=== PATIENT | female | born 1965 | race African-American/Black ===

== ENCOUNTER 2020-10-20 18:01 | Inpatient (IN) | payer OTHER ==
[2020-10-20 23:52] VITALS: BMI 23.1
[2020-10-21] MEDS ORDERED: MAG HYDROX/AL HYDROX/SIMETH 30 ML UNIT-DOSE CUP PO PRN (01:19)
[2020-10-21] MEDS ORDERED: IBUPROFEN 400 MG TABLET (FP) PO PRN (01:19)
[2020-10-21] MEDS ORDERED: guaiFENesin 200 MG/10 ML 10 ML UNIT-DOSE CUPS PO PRN (01:19)
[2020-10-21] MEDS ORDERED: NICOTINE POLACRILEX 2 MG GUM BC PRN (01:19)
[2020-10-21] MEDS ORDERED: MAGNESIUM HYDROX 2400MG/30ML ORAL SUSPENSION 30 ML CUP PO PRN (01:19)
[2020-10-21] MEDS ORDERED: ACETAMINOPHEN 325 MG TABLET (FP) PO PRN (01:19)
[2020-10-21] MEDS ORDERED: P-EPHED 60MG/TRIPROLIDI 2.5MG TABLET PO PRN (01:19)
[2020-10-21] MEDS ORDERED: LOPERAMIDE HCL 2 MG CAPSULE PO PRN (01:19)
[2020-10-21] MEDS ORDERED: MAGNESIUM CITRATE 300 ML BOTTLE PO PRN (01:19)
[2020-10-21] MEDS ORDERED: METHADONE HCL 10 MG TABLET PO ONE (08:44)
[2020-10-21] MEDS ORDERED: METHADONE 80 MG, METHADONE 30 MG, METHADONE 5 MG PO ONE (09:00)
[2020-10-21] MEDS ORDERED: METHADONE HCL 5 MG TABLET ONE (09:04)
[2020-10-21] MEDS ORDERED: METHADONE HCL 10 MG TABLET ONE (09:04)
[2020-10-21] MEDS ORDERED: METHADONE HCL 40 MG DISPERSABLE TABLET ONE (09:05)
[2020-10-21] MEDS: NICOTINE 14 MG/24 HOURS TOPICAL PATCH TD SCH (09:23)
[2020-10-21] MEDS: PRENATAL VITAMINS W/ FOLIC ACID TABLET (FP) PO SCH (09:23)
[2020-10-21 10:59] LABS: HEMATOCRIT 38.9 % (32.4-45.2); HEMOGLOBIN 12.9 GM/dL (10.7-15.3); MCH 27.8 pg (25.7-33.7); MCHC 33.1 g/dl (32.0-36.0); MEAN CELL VOLUME 83.9 fl (80-96); MEAN PLT VOLUME 9.4 fl (7.5-11.1); PLATELET COUNT 222 K/MM3 (134-434); RBC 4.64 M/mm3 (3.60-5.2); RDW 14.9 % (11.6-15.6)
[2020-10-21 11:07] LABS: CALCIUM 9.5 mg/dL (8.5-10.1)
[2020-10-21 11:08] LABS: ALBUMIN 3.4 g/dl (3.4-5.0); BLOOD UREA NITROGEN 14.9 mg/dL (7-18)
[2020-10-21 11:11] LABS: CREATININE 0.7 mg/dL (0.55-1.3)
[2020-10-21 11:13] LABS: BILIRUBIN,TOTAL 0.4 mg/dL (0.2-1); TOT PROT 7.1 g/dl (6.4-8.2)
[2020-10-21] MEDS ORDERED: ALBUTEROL SO4 HFA INHALER IH PRN (11:45)
[2020-10-21] MEDS: CHOLECALCIFEROL (VIT D3) 1,000 UNIT (25 MCG) TABLET PO SCH (12:22)
[2020-10-21] MEDS: HYDROCHLOROTHIAZIDE 25 MG TABLET (FP) PO SCH (12:22)
[2020-10-21] MEDS: NAPROXEN 500 MG TABLET PO PRN (12:22)
[2020-10-21 14:55] LABS: EPI CELLS 22 /uL (0-25.1); HYALINE CASTS 1 /uL (0-3.1); URINE APPEARANCE CLEAR; URINE BACTERIA 1412 /uL (0-1359); URINE BILIRUBIN NEGATIVE (NEGATIVE); URINE COLOR YELLOW; URINE GLUCOSE (UA) NEGATIVE (NEGATIVE); URINE KETONE NEGATIVE (NEGATIVE); URINE LEUK ESTERASE TRACE (NEGATIVE); URINE NITRITE NEGATIVE (NEGATIVE); URINE PROTEIN NEGATIVE (NEGATIVE); URINE RBC 3 /uL (0-23.9); URINE WBC 16 /uL (0-25.8)
[2020-10-21] MEDS: ATORVASTATIN CA 10 MG TABLET (FP) PO SCH (21:26)
[2020-10-21] MEDS: THIAMINE HCL 100 MG TABLET (FP) PO SCH (21:26)
[2020-10-21] MEDS: MELATONIN 5 MG TABLETS PO SCH (21:26)
[2020-10-22] MEDS ORDERED: METHADONE HCL 10 MG TABLET PO SCH (06:00)
[2020-10-22] MEDS ORDERED: METHADONE HCL 5 MG TABLET ONE (06:57)
[2020-10-22] MEDS ORDERED: METHADONE HCL 10 MG TABLET ONE (06:57)
[2020-10-22] MEDS ORDERED: METHADONE HCL 40 MG DISPERSABLE TABLET ONE (06:57)
[2020-10-22] MEDS: METHADONE 80 MG, METHADONE 30 MG, METHADONE 5 MG PO SCH (06:58)
[2020-10-22] MEDS: PRENATAL VITAMINS W/ FOLIC ACID TABLET (FP) PO SCH (09:32)
[2020-10-22] MEDS: NICOTINE 14 MG/24 HOURS TOPICAL PATCH TD SCH (09:32)
[2020-10-22] MEDS: CHOLECALCIFEROL (VIT D3) 1,000 UNIT (25 MCG) TABLET PO SCH (09:32)
[2020-10-22] MEDS: HYDROCHLOROTHIAZIDE 25 MG TABLET (FP) PO SCH (09:32)
[2020-10-22] MEDS: MELATONIN 5 MG TABLETS PO SCH (21:08)
[2020-10-22] MEDS: THIAMINE HCL 100 MG TABLET (FP) PO SCH (21:08)
[2020-10-22] MEDS: ATORVASTATIN CA 10 MG TABLET (FP) PO SCH (21:08)
[2020-10-23] MEDS ORDERED: METHADONE HCL 5 MG TABLET ONE (06:33)
[2020-10-23] MEDS ORDERED: METHADONE HCL 10 MG TABLET ONE (06:33)
[2020-10-23] MEDS ORDERED: METHADONE HCL 40 MG DISPERSABLE TABLET ONE (06:34)
[2020-10-23] MEDS: METHADONE 80 MG, METHADONE 30 MG, METHADONE 5 MG PO SCH (06:35)
[2020-10-23] MEDS: CHOLECALCIFEROL (VIT D3) 1,000 UNIT (25 MCG) TABLET PO SCH (09:23)
[2020-10-23] MEDS: NAPROXEN 500 MG TABLET PO PRN (09:24)
[2020-10-23] MEDS: HYDROCHLOROTHIAZIDE 25 MG TABLET (FP) PO SCH (09:24)
[2020-10-23] MEDS ORDERED: PT OWN MED DRAWER 7, Y5N ONE (09:24)
[2020-10-23] MEDS: NICOTINE 14 MG/24 HOURS TOPICAL PATCH TD SCH (09:25)
[2020-10-23] MEDS: PRENATAL VITAMINS W/ FOLIC ACID TABLET (FP) PO SCH (09:25)
[2020-10-23] MEDS: THIAMINE HCL 100 MG TABLET (FP) PO SCH (22:41)
[2020-10-23] MEDS: ATORVASTATIN CA 10 MG TABLET (FP) PO SCH (22:41)
[2020-10-23] MEDS: MELATONIN 5 MG TABLETS PO SCH (22:41)
[2020-10-24] MEDS ORDERED: METHADONE HCL 40 MG DISPERSABLE TABLET ONE (04:03)
[2020-10-24] MEDS ORDERED: METHADONE HCL 10 MG TABLET ONE (04:03)
[2020-10-24] MEDS ORDERED: METHADONE HCL 5 MG TABLET ONE (04:03)
[2020-10-24] MEDS: METHADONE 80 MG, METHADONE 30 MG, METHADONE 5 MG PO SCH (06:59)
[2020-10-24] MEDS: NICOTINE 14 MG/24 HOURS TOPICAL PATCH TD SCH (09:36)
[2020-10-24] MEDS: PRENATAL VITAMINS W/ FOLIC ACID TABLET (FP) PO SCH (09:36)
[2020-10-24] MEDS: NAPROXEN 500 MG TABLET PO PRN ×2 (09:37→21:35)
[2020-10-24] MEDS: HYDROCHLOROTHIAZIDE 25 MG TABLET (FP) PO SCH (09:37)
[2020-10-24] MEDS: CHOLECALCIFEROL (VIT D3) 1,000 UNIT (25 MCG) TABLET PO SCH (13:01)
[2020-10-24] MEDS ORDERED: MASKS NR ONE (21:08)
[2020-10-24] MEDS: ATORVASTATIN CA 10 MG TABLET (FP) PO SCH (21:35)
[2020-10-24] MEDS: MELATONIN 5 MG TABLETS PO SCH (21:35)
[2020-10-24] MEDS: THIAMINE HCL 100 MG TABLET (FP) PO SCH (21:35)
[2020-10-25] MEDS ORDERED: METHADONE HCL 5 MG TABLET ONE (03:47)
[2020-10-25] MEDS ORDERED: METHADONE HCL 10 MG TABLET ONE (03:48)
[2020-10-25] MEDS ORDERED: METHADONE HCL 40 MG DISPERSABLE TABLET ONE (03:49)
[2020-10-25] MEDS: METHADONE 80 MG, METHADONE 30 MG, METHADONE 5 MG PO SCH (06:39)
[2020-10-25 08:08] LABS: SARS-CoV-2 NAA Not Detected (Not Detected)
[2020-10-25] MEDS: PRENATAL VITAMINS W/ FOLIC ACID TABLET (FP) PO SCH (09:36)
[2020-10-25] MEDS: CHOLECALCIFEROL (VIT D3) 1,000 UNIT (25 MCG) TABLET PO SCH (09:36)
[2020-10-25] MEDS: HYDROCHLOROTHIAZIDE 25 MG TABLET (FP) PO SCH (09:36)
[2020-10-25] MEDS: NICOTINE 14 MG/24 HOURS TOPICAL PATCH TD SCH (09:37)
[2020-10-25] MEDS: MELATONIN 5 MG TABLETS PO SCH (21:06)
[2020-10-25] MEDS: NAPROXEN 500 MG TABLET PO PRN (21:06)
[2020-10-25] MEDS: ATORVASTATIN CA 10 MG TABLET (FP) PO SCH (21:06)
[2020-10-25] MEDS: THIAMINE HCL 100 MG TABLET (FP) PO SCH (21:06)
[2020-10-26] MEDS ORDERED: METHADONE HCL 10 MG TABLET ONE (03:09)
[2020-10-26] MEDS ORDERED: METHADONE HCL 40 MG DISPERSABLE TABLET ONE (03:09)
[2020-10-26] MEDS ORDERED: METHADONE HCL 5 MG TABLET ONE (03:09)
[2020-10-26] MEDS: METHADONE 80 MG, METHADONE 30 MG, METHADONE 5 MG PO SCH (07:08)
[2020-10-26] MEDS: PRENATAL VITAMINS W/ FOLIC ACID TABLET (FP) PO SCH (09:35)
[2020-10-26] MEDS: HYDROCHLOROTHIAZIDE 25 MG TABLET (FP) PO SCH (09:35)
[2020-10-26] MEDS: CHOLECALCIFEROL (VIT D3) 1,000 UNIT (25 MCG) TABLET PO SCH (09:36)
[2020-10-26] MEDS: NAPROXEN 500 MG TABLET PO PRN ×2 (09:38→21:45)
[2020-10-26] MEDS: NICOTINE 14 MG/24 HOURS TOPICAL PATCH TD SCH (10:25)
[2020-10-26] MEDS: ATORVASTATIN CA 10 MG TABLET (FP) PO SCH (21:45)
[2020-10-26] MEDS: MELATONIN 5 MG TABLETS PO SCH (21:45)
[2020-10-26] MEDS: THIAMINE HCL 100 MG TABLET (FP) PO SCH (21:45)
[2020-10-27] MEDS ORDERED: METHADONE HCL 5 MG TABLET ONE (03:24)
[2020-10-27] MEDS ORDERED: METHADONE HCL 40 MG DISPERSABLE TABLET ONE (03:25)
[2020-10-27] MEDS ORDERED: METHADONE HCL 10 MG TABLET ONE (03:25)
[2020-10-27] MEDS: METHADONE 80 MG, METHADONE 30 MG, METHADONE 5 MG PO SCH (06:57)
[2020-10-27] MEDS: HYDROCHLOROTHIAZIDE 25 MG TABLET (FP) PO SCH (09:38)
[2020-10-27] MEDS: PRENATAL VITAMINS W/ FOLIC ACID TABLET (FP) PO SCH (09:38)
[2020-10-27] MEDS: NICOTINE 14 MG/24 HOURS TOPICAL PATCH TD SCH (09:38)
[2020-10-27] MEDS: NAPROXEN 500 MG TABLET PO PRN (09:38)
[2020-10-27] MEDS: CHOLECALCIFEROL (VIT D3) 1,000 UNIT (25 MCG) TABLET PO SCH (10:16)
[2020-10-27] MEDS: ATORVASTATIN CA 10 MG TABLET (FP) PO SCH (21:05)
[2020-10-27] MEDS: MELATONIN 5 MG TABLETS PO SCH (21:05)
[2020-10-27] MEDS: THIAMINE HCL 100 MG TABLET (FP) PO SCH (21:05)
[2020-10-28] MEDS ORDERED: METHADONE HCL 40 MG DISPERSABLE TABLET ONE (06:43)
[2020-10-28] MEDS ORDERED: METHADONE HCL 10 MG TABLET ONE (06:43)
[2020-10-28] MEDS ORDERED: METHADONE HCL 5 MG TABLET ONE (06:43)
[2020-10-28] MEDS: METHADONE 80 MG, METHADONE 30 MG, METHADONE 5 MG PO SCH (06:45)
[2020-10-28 07:01] VITALS: BP 135/85; PULSE 61; TEMP 97.1
[2020-10-28] MEDS: HYDROCHLOROTHIAZIDE 25 MG TABLET (FP) PO SCH (09:46)
[2020-10-28] MEDS: PRENATAL VITAMINS W/ FOLIC ACID TABLET (FP) PO SCH (09:46)
[2020-10-28] MEDS: CHOLECALCIFEROL (VIT D3) 1,000 UNIT (25 MCG) TABLET PO SCH (09:47)
[2020-10-28] MEDS: NICOTINE 14 MG/24 HOURS TOPICAL PATCH TD SCH (09:47)
[2020-10-28] MEDS: NAPROXEN 500 MG TABLET PO PRN (09:48)
== END 2020-10-28 11:00 | disposition home or self-care (01) | DRG 772 ==
LOC: YASAS 18:01 → Y5N 10-21 01:05
PROVIDERS: ADMIT Allergy & Immunology; ATTEND Allergy & Immunology
PROC: HZ42ZZZ Group Counseling for Substance Abuse Treatment, Cognitive-Behavioral (ICD-10-PCS; principal; 2020-10-21)
DX: F11.20 Opioid dependence, uncomplicated (principal); F14.20 Cocaine dependence, uncomplicated; F10.10 Alcohol abuse, uncomplicated; F17.210 Nicotine dependence, cigarettes, uncomplicated; I10 Essential (primary) hypertension; M41.9 Scoliosis, unspecified; R76.11 Nonspecific reaction to tuberculin skin test without active tuberculosis
CPT/HCPCS: 36415; 71046-TC-FY; 80053; 81003; 81025; 85027; 86593; 86780; 93005; 93010; C9803; U0003; U0005

== ENCOUNTER 2021-03-19 13:57 | Inpatient (IN) | payer OTHER ==
[2021-03-19 18:39] VITALS: BMI 22.5
[2021-03-19] MEDS ORDERED: ACETAMINOPHEN 325 MG TABLET (FP) PO PRN (18:39)
[2021-03-19] MEDS ORDERED: LOPERAMIDE HCL 2 MG CAPSULE PO PRN (18:39)
[2021-03-19] MEDS ORDERED: hydrOXYzine PAMOATE 25 MG CAPSULE (FP) PO PRN (18:39)
[2021-03-19] MEDS ORDERED: MAGNESIUM HYDROX 2400MG/30ML ORAL SUSPENSION 30 ML CUP PO PRN (18:39)
[2021-03-19] MEDS ORDERED: guaiFENesin 200 MG/10 ML 10 ML UNIT-DOSE CUPS PO PRN (18:39)
[2021-03-19] MEDS ORDERED: MAG HYDROX/AL HYDROX/SIMETH 30 ML UNIT-DOSE CUP PO PRN (18:39)
[2021-03-19] MEDS ORDERED: NICOTINE 10 MG CARTRIDGE (INHALER) IH PRN (18:39)
[2021-03-19] MEDS ORDERED: MAGNESIUM CITRATE 300 ML BOTTLE PO PRN (18:39)
[2021-03-19] MEDS ORDERED: P-EPHED 60MG/TRIPROLIDI 2.5MG TABLET PO PRN (18:39)
[2021-03-20] MEDS: THIAMINE HCL 100 MG TABLET (FP) PO SCH ×2 (06:41→21:12)
[2021-03-20] MEDS: MELATONIN 5 MG TABLETS PO SCH ×2 (06:41→21:12)
[2021-03-20] MEDS: PRENATAL VITAMINS W/ FOLIC ACID TABLET (FP) PO SCH (11:03)
[2021-03-20] MEDS: NICOTINE 7 MG/24 HOURS TOPICAL PATCH TD SCH (11:03)
[2021-03-20] MEDS ORDERED: methaDONE HCL 10 MG TABLET PO SCH (11:30)
[2021-03-20] MEDS ORDERED: methaDONE HCL 10 MG TABLET ONE (11:47)
[2021-03-20] MEDS ORDERED: methaDONE HCL 40 MG DISPERSABLE TABLET ONE (11:48)
[2021-03-21] MEDS ORDERED: methaDONE HCL 40 MG DISPERSABLE TABLET ONE (03:33)
[2021-03-21] MEDS ORDERED: methaDONE HCL 10 MG TABLET ONE (03:33)
[2021-03-21] MEDS: HYDROCHLOROTHIAZIDE 25 MG TABLET (FP) PO SCH (10:23)
[2021-03-21] MEDS: PRENATAL VITAMINS W/ FOLIC ACID TABLET (FP) PO SCH (10:23)
[2021-03-21] MEDS: NICOTINE 7 MG/24 HOURS TOPICAL PATCH TD SCH (10:23)
[2021-03-21] MEDS: IBUPROFEN 400 MG TABLET (FP) PO PRN (10:25)
[2021-03-21] MEDS: THIAMINE HCL 100 MG TABLET (FP) PO SCH (21:06)
[2021-03-21] MEDS: MELATONIN 5 MG TABLETS PO SCH (21:06)
[2021-03-22] MEDS ORDERED: methaDONE HCL 40 MG DISPERSABLE TABLET ONE (02:50)
[2021-03-22] MEDS ORDERED: methaDONE HCL 10 MG TABLET ONE (02:50)
[2021-03-22] MEDS: HYDROCHLOROTHIAZIDE 25 MG TABLET (FP) PO SCH (10:34)
[2021-03-22] MEDS: PRENATAL VITAMINS W/ FOLIC ACID TABLET (FP) PO SCH (10:34)
[2021-03-22] MEDS: NICOTINE 7 MG/24 HOURS TOPICAL PATCH TD SCH (10:35)
[2021-03-22] MEDS: IBUPROFEN 400 MG TABLET (FP) PO PRN (10:40)
[2021-03-22] MEDS ORDERED: NAPROXEN 500 MG TABLET PO PRN (13:29)
[2021-03-22 16:10] LABS: HEMATOCRIT 37.3 % (32.4-45.2); HEMOGLOBIN 11.9 GM/dL (10.7-15.3); MEAN CELL VOLUME 81.4 fl (80-96); MEAN PLT VOLUME 8.4 fl (7.5-11.1); PLATELET COUNT 402 10^3/uL (134-434); RBC 4.59 M/mm3 (3.60-5.2); RDW 15.7 % (11.6-15.6); WHITE BLOOD COUNT 15.2 K/mm3 (4.0-10.0)
[2021-03-22 16:52] LABS: ALBUMIN 2.4 g/dl (3.4-5.0); BLOOD UREA NITROGEN 8.6 mg/dL (7-18); CALCIUM 9.6 mg/dL (8.5-10.1)
[2021-03-22 16:55] LABS: CREATININE 0.7 mg/dL (0.55-1.3)
[2021-03-22 16:57] LABS: BILIRUBIN,TOTAL 0.5 mg/dL (0.2-1); TOT PROT 7.8 g/dl (6.4-8.2)
[2021-03-22 17:28] LABS: SYPHILIS W/ RPR CONF REACTIVE (NONREACTIVE)
[2021-03-22] MEDS: THIAMINE HCL 100 MG TABLET (FP) PO SCH (23:06)
[2021-03-22] MEDS: MELATONIN 5 MG TABLETS PO SCH (23:06)
[2021-03-23] MEDS ORDERED: methaDONE HCL 10 MG TABLET ONE (03:12)
[2021-03-23] MEDS ORDERED: methaDONE HCL 40 MG DISPERSABLE TABLET ONE (03:12)
[2021-03-23] MEDS: NICOTINE 7 MG/24 HOURS TOPICAL PATCH TD SCH (11:32)
[2021-03-23] MEDS: HYDROCHLOROTHIAZIDE 25 MG TABLET (FP) PO SCH (11:32)
[2021-03-23] MEDS: PRENATAL VITAMINS W/ FOLIC ACID TABLET (FP) PO SCH (11:32)
[2021-03-23] MEDS: THIAMINE HCL 100 MG TABLET (FP) PO SCH (22:26)
[2021-03-23] MEDS: MELATONIN 5 MG TABLETS PO SCH (22:26)
[2021-03-24] MEDS ORDERED: methaDONE HCL 10 MG TABLET ONE (02:55)
[2021-03-24] MEDS ORDERED: methaDONE HCL 40 MG DISPERSABLE TABLET ONE (02:56)
[2021-03-24] MEDS: PRENATAL VITAMINS W/ FOLIC ACID TABLET (FP) PO SCH (10:53)
[2021-03-24] MEDS: HYDROCHLOROTHIAZIDE 25 MG TABLET (FP) PO SCH (10:53)
[2021-03-24] MEDS: NICOTINE 7 MG/24 HOURS TOPICAL PATCH TD SCH (10:54)
[2021-03-24] MEDS: NAPROXEN 500 MG TABLET PO PRN (10:55)
[2021-03-24] MEDS: MELATONIN 5 MG TABLETS PO SCH (21:33)
[2021-03-24] MEDS: THIAMINE HCL 100 MG TABLET (FP) PO SCH (21:34)
[2021-03-25] MEDS ORDERED: methaDONE HCL 10 MG TABLET ONE (05:41)
[2021-03-25] MEDS ORDERED: methaDONE HCL 40 MG DISPERSABLE TABLET ONE (05:41)
[2021-03-25] MEDS: PRENATAL VITAMINS W/ FOLIC ACID TABLET (FP) PO SCH (11:03)
[2021-03-25] MEDS: NICOTINE 7 MG/24 HOURS TOPICAL PATCH TD SCH (11:03)
[2021-03-25] MEDS: HYDROCHLOROTHIAZIDE 25 MG TABLET (FP) PO SCH (11:03)
[2021-03-25 15:04] LABS: HEMOGLOBIN 11.4 GM/dL (10.7-15.3); MCH 26.4 pg (25.7-33.7); MCHC 32.5 g/dl (32.0-36.0); MEAN CELL VOLUME 81.2 fl (80-96); MEAN PLT VOLUME 8.4 fl (7.5-11.1); PLATELET COUNT 458 10^3/uL (134-434); RBC 4.31 M/mm3 (3.60-5.2); RDW 15.2 % (11.6-15.6); WHITE BLOOD COUNT 13.2 K/mm3 (4.0-10.0)
[2021-03-25 15:13] LABS: ALBUMIN 2.5 g/dl (3.4-5.0); BLOOD UREA NITROGEN 12.6 mg/dL (7-18); CREATININE 0.7 mg/dL (0.55-1.3)
[2021-03-25 15:14] LABS: BILIRUBIN,TOTAL 0.4 mg/dL (0.2-1)
[2021-03-25 15:15] LABS: TOT PROT 8.2 g/dl (6.4-8.2)
[2021-03-25] MEDS: PENICILLIN G BENZATHINE 2,400,000 UNIT/4 ML PFS IM ONE ×2 (15:19→15:44)
[2021-03-25 15:21] LABS: EPI CELLS 17 /uL (0-25.1); HYALINE CASTS 1 /uL (0-3.1); PH,URINE 5.5 (5.0-8.0); URINE APPEARANCE CLEAR; URINE BACTERIA 244 /uL (0-1359); URINE BILIRUBIN NEGATIVE (NEGATIVE); URINE COLOR DK YELLOW; URINE GLUCOSE (UA) NEGATIVE (NEGATIVE); URINE KETONE NEGATIVE (NEGATIVE); URINE LEUK ESTERASE TRACE (NEGATIVE); URINE NITRITE NEGATIVE (NEGATIVE); URINE PROTEIN NEGATIVE (NEGATIVE); URINE WBC 12 /uL (0-25.8)
[2021-03-25 17:50] LABS: URINE RBC 32.5 /uL (0-23.9)
[2021-03-25] MEDS: THIAMINE HCL 100 MG TABLET (FP) PO SCH (21:50)
[2021-03-25] MEDS: MELATONIN 5 MG TABLETS PO SCH (21:50)
[2021-03-25] MEDS: NAPROXEN 500 MG TABLET PO PRN (21:51)
[2021-03-26] MEDS ORDERED: methaDONE HCL 10 MG TABLET ONE (03:23)
[2021-03-26] MEDS ORDERED: methaDONE HCL 40 MG DISPERSABLE TABLET ONE (03:23)
[2021-03-26] MEDS: NICOTINE 7 MG/24 HOURS TOPICAL PATCH TD SCH (10:03)
[2021-03-26] MEDS: PRENATAL VITAMINS W/ FOLIC ACID TABLET (FP) PO SCH (10:03)
[2021-03-26] MEDS: HYDROCHLOROTHIAZIDE 25 MG TABLET (FP) PO SCH (10:04)
[2021-03-26] MEDS: NAPROXEN 500 MG TABLET PO PRN ×2 (10:05→21:33)
[2021-03-26] MEDS: THIAMINE HCL 100 MG TABLET (FP) PO SCH (21:32)
[2021-03-26] MEDS: MELATONIN 5 MG TABLETS PO SCH (21:32)
[2021-03-27] MEDS ORDERED: methaDONE HCL 10 MG TABLET ONE (03:01)
[2021-03-27] MEDS ORDERED: methaDONE HCL 40 MG DISPERSABLE TABLET ONE (03:01)
[2021-03-27] MEDS: HYDROCHLOROTHIAZIDE 25 MG TABLET (FP) PO SCH (11:27)
[2021-03-27] MEDS: PRENATAL VITAMINS W/ FOLIC ACID TABLET (FP) PO SCH (11:29)
[2021-03-27] MEDS: NICOTINE 7 MG/24 HOURS TOPICAL PATCH TD SCH (11:29)
[2021-03-27 11:55] LABS: ALBUMIN 2.6 g/dl (3.4-5.0); BLOOD UREA NITROGEN 10.8 mg/dL (7-18); CALCIUM 9.3 mg/dL (8.5-10.1)
[2021-03-27 11:57] LABS: CREATININE 0.6 mg/dL (0.55-1.3)
[2021-03-27 11:59] LABS: BILIRUBIN,TOTAL 0.6 mg/dL (0.2-1); TOT PROT 8.2 g/dl (6.4-8.2)
[2021-03-27] MEDS: THIAMINE HCL 100 MG TABLET (FP) PO SCH (21:28)
[2021-03-27] MEDS: MELATONIN 5 MG TABLETS PO SCH (21:28)
[2021-03-27] MEDS: NAPROXEN 500 MG TABLET PO PRN (21:29)
[2021-03-28] MEDS ORDERED: methaDONE HCL 40 MG DISPERSABLE TABLET PO SCH (06:30)
[2021-03-28] MEDS ORDERED: methaDONE HCL 10 MG TABLET ONE (06:42)
[2021-03-28] MEDS ORDERED: methaDONE HCL 40 MG DISPERSABLE TABLET ONE (06:43)
[2021-03-28] MEDS: NICOTINE 7 MG/24 HOURS TOPICAL PATCH TD SCH (10:28)
[2021-03-28] MEDS: HYDROCHLOROTHIAZIDE 25 MG TABLET (FP) PO SCH (10:28)
[2021-03-28] MEDS: PRENATAL VITAMINS W/ FOLIC ACID TABLET (FP) PO SCH (10:28)
[2021-03-28] MEDS: NAPROXEN 500 MG TABLET PO PRN ×2 (10:29→20:30)
[2021-03-28] MEDS: THIAMINE HCL 100 MG TABLET (FP) PO SCH ×2 (20:31→22:09)
[2021-03-28] MEDS: MELATONIN 5 MG TABLETS PO SCH ×2 (20:31→22:09)
[2021-03-29] MEDS ORDERED: methaDONE HCL 40 MG DISPERSABLE TABLET ONE (03:18)
[2021-03-29] MEDS ORDERED: methaDONE HCL 10 MG TABLET ONE (03:18)
[2021-03-29] MEDS: HYDROCHLOROTHIAZIDE 25 MG TABLET (FP) PO SCH (10:43)
[2021-03-29] MEDS: NICOTINE 7 MG/24 HOURS TOPICAL PATCH TD SCH (10:44)
[2021-03-29] MEDS: PRENATAL VITAMINS W/ FOLIC ACID TABLET (FP) PO SCH (10:44)
[2021-03-29] MEDS: NAPROXEN 500 MG TABLET PO PRN (17:59)
[2021-03-29] MEDS: THIAMINE HCL 100 MG TABLET (FP) PO SCH (22:27)
[2021-03-29] MEDS: MELATONIN 5 MG TABLETS PO SCH (22:28)
[2021-03-30] MEDS ORDERED: methaDONE HCL 40 MG DISPERSABLE TABLET ONE (03:11)
[2021-03-30] MEDS ORDERED: methaDONE HCL 10 MG TABLET ONE (03:11)
[2021-03-30] MEDS: PRENATAL VITAMINS W/ FOLIC ACID TABLET (FP) PO SCH (10:32)
[2021-03-30] MEDS: HYDROCHLOROTHIAZIDE 25 MG TABLET (FP) PO SCH (10:32)
[2021-03-30] MEDS: NAPROXEN 500 MG TABLET PO PRN (10:33)
[2021-03-30] MEDS: NICOTINE 7 MG/24 HOURS TOPICAL PATCH TD SCH (10:57)
[2021-03-30] MEDS: MELATONIN 5 MG TABLETS PO SCH (21:08)
[2021-03-30] MEDS: THIAMINE HCL 100 MG TABLET (FP) PO SCH (21:08)
[2021-03-31] MEDS ORDERED: methaDONE HCL 40 MG DISPERSABLE TABLET ONE (05:08)
[2021-03-31] MEDS ORDERED: methaDONE HCL 10 MG TABLET ONE (05:08)
[2021-03-31] MEDS: NICOTINE 7 MG/24 HOURS TOPICAL PATCH TD SCH (10:28)
[2021-03-31] MEDS: HYDROCHLOROTHIAZIDE 25 MG TABLET (FP) PO SCH (10:28)
[2021-03-31] MEDS: PRENATAL VITAMINS W/ FOLIC ACID TABLET (FP) PO SCH (10:28)
[2021-03-31] MEDS: NAPROXEN 500 MG TABLET PO PRN ×2 (10:29→21:38)
[2021-03-31] MEDS: MELATONIN 5 MG TABLETS PO SCH (21:38)
[2021-03-31] MEDS: THIAMINE HCL 100 MG TABLET (FP) PO SCH (21:38)
[2021-04-01] MEDS ORDERED: methaDONE HCL 10 MG TABLET ONE (03:07)
[2021-04-01] MEDS ORDERED: methaDONE HCL 40 MG DISPERSABLE TABLET ONE (03:08)
[2021-04-01] MEDS: NAPROXEN 500 MG TABLET PO PRN ×2 (10:52→21:11)
[2021-04-01] MEDS: HYDROCHLOROTHIAZIDE 25 MG TABLET (FP) PO SCH (10:52)
[2021-04-01] MEDS: NICOTINE 7 MG/24 HOURS TOPICAL PATCH TD SCH (10:52)
[2021-04-01] MEDS: PRENATAL VITAMINS W/ FOLIC ACID TABLET (FP) PO SCH (10:52)
[2021-04-01] MEDS: MELATONIN 5 MG TABLETS PO SCH (21:10)
[2021-04-01] MEDS: THIAMINE HCL 100 MG TABLET (FP) PO SCH (21:10)
[2021-04-02] MEDS ORDERED: methaDONE HCL 10 MG TABLET ONE (05:09)
[2021-04-02] MEDS ORDERED: methaDONE HCL 40 MG DISPERSABLE TABLET ONE (05:10)
[2021-04-02 07:30] VITALS: BP 125/58; PULSE 82; TEMP 96.9
[2021-04-02] MEDS: NAPROXEN 500 MG TABLET PO PRN (09:52)
[2021-04-02] MEDS: NICOTINE 7 MG/24 HOURS TOPICAL PATCH TD SCH (09:52)
[2021-04-02] MEDS: HYDROCHLOROTHIAZIDE 25 MG TABLET (FP) PO SCH (09:52)
[2021-04-02] MEDS: PRENATAL VITAMINS W/ FOLIC ACID TABLET (FP) PO SCH (09:52)
== END 2021-04-02 11:00 | disposition home or self-care (01) | DRG 772 ==
LOC: YASAS 13:57 → Y5N 03-20 01:38
PROVIDERS: ADMIT Allergy & Immunology; ATTEND Allergy & Immunology
PROC: HZ42ZZZ Group Counseling for Substance Abuse Treatment, Cognitive-Behavioral (ICD-10-PCS; principal; 2021-03-20)
DX: F14.20 Cocaine dependence, uncomplicated (principal); F11.20 Opioid dependence, uncomplicated; F17.210 Nicotine dependence, cigarettes, uncomplicated; E87.5 Hyperkalemia; I10 Essential (primary) hypertension; M41.9 Scoliosis, unspecified; Z99.89 Dependence on other enabling machines and devices; Z86.11 Personal history of tuberculosis; Z88.0 Allergy status to penicillin
CPT/HCPCS: 36415; 80053; 81003; 85027; 86593; 86780; 86803; C9803; U0003; U0005